=== PATIENT | female | born 1950 | race Caucasian/White ===

== ENCOUNTER → 2020-04-26 | Outpatient (CLI) | payer MEDICARE, OTHER ==
[~2020-04-26] MED LIST: IOHEXOL 240 MG/ML 50ML VIAL. PO ONE; IOHEXOL 300 MG/ML 100ML VIAL. IV ONE
--- NOTE | 2020-04-26 15:20 | KCIC ---
Examination: CT of the abdomen pelvis with oral and IV contrast HISTORY: History of left lower quadrant abdominal pain, history of diverticulitis COMPARISON: None available TECHNIQUE: Axial CT images of the abdomen pelvis were performed with oral and IV contrast. Coronal and sagittal reformats are performed Exposure: One or more of the following individualized dose reduction techniques were utilized for this examination: 1. Automated exposure control 2. Adjustment of the mA and/or kV according to patient size 3. Use of iterative reconstruction technique FINDINGS: The bibasilar lungs are clear. No evidence of free air identified in the abdomen. Mild decreased attenuation noted in the liver likely hepatic steatosis. Gallstones Identified in the gallbladder. The spleen, adrenals, pancreas grossly appears unremarkable. The stomach is mildly distended. The small bowel is nondilated. Feces and gas identified in the colon. Surgical changes identified in the sigmoid colon. The appendix is normal. Urinary bladder is mildly distended. Punctate intrarenal collecting system calculi identified in the right kidney with the largest measuring 2.5 mm in the right kidney. Punctate 1 mm calculus identified in the left kidney. There is a cystic structure identified in the inferior aspect of the left kidney measuring 3.5 cm likely cyst. Moderate aortic atherosclerosis. Mild degenerative changes thoracolumbar spine. IMPRESSION: 1. Surgical changes identified in the sigmoid colon. 2. Cholelithiasis. 3. Bilateral intrarenal system calculi. 4. 3.5 cm cyst left kidney. Electronically signed by: Philip Onofre MD (04/26/2020 3:17 PM) [id number]
== END | disposition home or self-care (01) ==
LOC: KCIC CT 12:57
PROVIDERS: ATTEND Internal Medicine Gastroenterology
DX: K80.20 Calculus of gallbladder without cholecystitis without obstruction (principal); N20.0 Calculus of kidney; N28.1 Cyst of kidney, acquired; K80.80 Other cholelithiasis without obstruction; K31.89 Other diseases of stomach and duodenum; N32.89 Other specified disorders of bladder; R14.3 Flatulence; I70.0 Atherosclerosis of aorta; M47.815 Spondylosis without myelopathy or radiculopathy, thoracolumbar region; Z87.19 Personal history of other diseases of the digestive system
CPT/HCPCS: 74177; 82565; Q9966; Q9967